=== PATIENT | female | born 1960 | race Caucasian/White ===

== ENCOUNTER 2018-04-24 14:24 | Outpatient (REF) | payer MEDICAID, SELFPAY ==
[2018-04-24 20:46] LABS: ALT 27 U/L (12-78); AST 16 U/L (15-37); Albumin 3.8 g/dL (3.4-5.0); Alkaline Phosphatase 73 U/L (46-116); Anion Gap 10.2 mmol/L (3-11); BUN 25 mg/dL (7-18); Bilirubin, Total 0.3 mg/dL (0.2-1.0); C-Reactive Protein 0.17 mg/dL (0.0-0.3); CO2 25.8 mmol/L (21.0-32.0); CREATININE 0.87 mg/dL (0.55-1.02); Chloride 104 mmol/L (98-107); Glucose 98 mg/dL (70-100); Potassium 4.1 mmol/L (3.5-5.1); Sodium 140 mmol/L (136-145); TSH 2.03 uIU/mL (0.358-3.74)
[2018-04-24 20:50] LABS: Absolute Basophil Count 0.03 k/cumm (0.0-0.2); Absolute Eosinophil Count 0.16 k/cumm (0.0-0.7); Absolute Lymphocyte Count 1.36 k/cumm (1.2-3.4); Absolute Monocyte Count 0.39 k/cumm (0.11-0.7); Basophils % 0.6; Eosinophils % 3.2; HCT 38.5 % (36.0-46.0); HGB 12.5 g/dL (12.0-15.5); Mean Corp. HGB Concentration 32.5 g/dL (32.0-36.0); Mean Corpuscular Hemoglobin 31.3 pg (27.0-33.0); Mean Corpuscular Volume 96.3 fL (80-95); Mean Platelet Volume 9.8 fL (8.0-11.0); Monocytes % 7.7; Neutrophils % 61.5; Platelet Count 306 x1000/uL (130-400); RBC Distribution Width 13.3 % (11.7-14.6); White Blood Cell Count 5.04 k/cumm (4.4-10.8)
[2018-04-24 22:15] LABS: ESR 10 MM/HR (0-30)
[2018-04-25 13:35] LABS: Calcium 8.9 mg/dL (8.5-10.1)
== END 2018-04-24 14:44 ==
LOC: NCHCN 14:24
PROVIDERS: PCP Nurse Practitioner Family; Visit Provider Nurse Practitioner Family
DX: R19.7 Diarrhea, unspecified (principal)
CPT/HCPCS: 80053; 85652; 84443; 85025; 86140

== ENCOUNTER 2020-01-06 11:04 | Outpatient (REF) | payer MEDICAID, SELFPAY ==
--- NOTE | 2020-01-06 10:25 | PAPFT_PTH ---
PATIENT: Mishel Mitchell LOC: [facility] U#:[id number] AGE/SX: 59/F ROOM: RE01/06/[address]: Teri Wyman : 1960 BED: DIS: 01/06/2020 SPEC #: [id number] RECD: 01/07/20 12:46 STATUS: RANDALL REQ #: [id number] DELIA: 01/06/20 10:[address]: Teri Wyman DEPT: [facility] Cyt[facility] RECD BY: Katia Squires ENTERED: 01/07/20 12:46 SP TYPE: PAPFT OTHR DR: Milagros Melendez Tissues: 1 - CX/ENDOCX FOR PAP SMEARS Procedures: PAP THIN PREP/[facility] Screening HPV DNA PROBE Comments: [id number]
== END 2020-01-06 11:24 ==
LOC: NCHCN 11:04
PROVIDERS: PCP Nurse Practitioner Family; Visit Provider Nurse Practitioner Community Health
DX: Z12.4 Encounter for screening for malignant neoplasm of cervix (principal)
CPT/HCPCS: 88142; 87624

== ENCOUNTER 2021-03-17 11:09 | Outpatient (REF) | payer MEDICAID, SELFPAY ==
[2021-03-17 15:50] LABS: ALT 31 U/L (14-59); AST 12 U/L (15-37); Albumin 3.5 g/dL (3.4-5.0); Alkaline Phosphatase 92 U/L (46-116); Anion Gap 8.7 mmol/L (3-11); BUN 19 mg/dL (7-18); Bilirubin, Total 0.3 mg/dL (0.2-1.0); CO2 28.3 mmol/L (21.0-32.0); CREATININE 0.8 mg/dL (0.55-1.02); Calcium 8.7 mg/dL (8.5-10.1); Calculated LDL 116 mg/dL (<100); Chloride 104 mmol/L (98-107); Cholesterol 210 mg/dL (<200); Glucose 78 mg/dL (74-106); HDL Cholesterol 65 mg/dL (40-60); Potassium 4.4 mmol/L (3.5-5.1); Sodium 141 mmol/L (136-145); Total Protein 6.8 g/dL (6.4-8.2); Triglyceride 146 mg/dL (<150)
[2021-03-17 16:46] LABS: Vitamin B12 > 2000 pg/mL (193-986)
== END 2021-03-17 11:10 | disposition home or self-care (01) ==
LOC: NCHCN 11:09
PROVIDERS: PCP Nurse Practitioner Family; Referring Provider Nurse Practitioner Family; Visit Provider Nurse Practitioner Family
DX: E53.8 Deficiency of other specified B group vitamins (principal); I10 Essential (primary) hypertension; Z13.220 Encounter for screening for lipoid disorders
CPT/HCPCS: 80053; 80061; 82607

== ENCOUNTER 2022-03-10 10:54 | Outpatient (CLI) | payer MEDICAID, SELFPAY ==
--- NOTE | 2022-03-10 10:00 | DI.RAD_ITS ---
Exam(s) XR KNEE LT 3V AP,LAT,KATY EXAM: XR KNEE LT 3V AP,LAT,KATY CLINICAL HISTORY: pain in knee. TECHNIQUE: 2D digital imaging was performed. COMPARISON: CR LEFT KNEE 3 VIEW COMPLETE from 12/25/2008 MR MRI L LOWER JOINT WO CONT from 01/22/2009 FINDINGS: 3 views No evidence of fracture nor joint effusion. However, there is advanced narrowing of the lateral comp artment noted. Also marginal osteophytes on both sides inner and outer aspects of the lateral femora l condyle as well as on the outer aspect of the lateral tibial plateau. Lesser degenerative changes are noted in the medial compartment. Moderate degenerative changes in the patellofemoral compartment . IMPRESSION: As above. Significant progression of degenerative disease when compared to the prior images of 2008. DATA REPOSITORY: RADIATION DOSE DELIVERED:
== END 2022-03-10 10:55 | disposition home or self-care (01) ==
LOC: DIORS 10:54
PROVIDERS: PCP Nurse Practitioner Family; Referring Provider Nurse Practitioner Family; Visit Provider Physician Assistant Surgical
DX: M25.562 Pain in left knee (principal); M17.12 Unilateral primary osteoarthritis, left knee
CPT/HCPCS: 73562

== ENCOUNTER 2022-09-08 03:31 | Outpatient (CLI) | payer MEDICAID, SELFPAY ==
[2022-09-08 13:44] LABS: HCT 41.6 % (36.0-46.0); HGB 13.6 g/dL (11.2-15.7); MCH 31.6 pg (27.0-33.0); MCHC 32.7 % (32.0-36.0); MCV 97 fL (80-95); MPV 8.7 fL (8.0-11.0); Platelet Count 371 10^3/uL (130-400); RDW 12.8 % (11.7-14.6); RDW-SD 45.3 fL; WBC 5.68 10^3/uL (4.4-10.8)
[2022-09-08 14:04] LABS: Anion Gap 9.2 mmol/L (3-11); BUN 19 mg/dL (7-18); CO2 27.8 mmol/L (21.0-32.0); CREATININE 0.9 mg/dL (0.55-1.02); Chloride 104 mmol/L (98-107); Estimated GFR 72.73 (mL/min/1.73m2); Glucose 107 mg/dL (74-106); Sodium 141 mmol/L (136-145)
== END 2022-09-08 03:32 | disposition home or self-care (01) ==
LOC: LBO 03:31
PROVIDERS: PCP Nurse Practitioner Family; Visit Provider Student in an Organized Health Care Education/Training Program
DX: M25.562 Pain in left knee (principal); M17.12 Unilateral primary osteoarthritis, left knee; Z01.818 Encounter for other preprocedural examination; Z01.812 Encounter for preprocedural laboratory examination
CPT/HCPCS: 36415; 80048; 85027

== ENCOUNTER 2022-09-08 13:18 | Outpatient (CLI) | payer MEDICAID, SELFPAY ==
--- NOTE | 2022-09-08 13:00 | DI.RAD_ITS ---
Exam(s) XR KNEE LT 1V XR STANDING ALIGNMENT EXAM: XR STANDING ALIGNMENT and XR knee LT 1 V CLINICAL HISTORY: L TKA planning. TECHNIQUE: 2D digital imaging was performed. Five images were obtained. COMPARISON: CR XR KNEE LT 3V AP,LAT,KATY from 03/10/2022 CR XR KNEE LT 1V from 09/08/2022 FINDINGS: BONES: There are degenerative changes of the hips bilaterally. There are old traumatic changes of th e left femur. The right knee is unremarkable. In the left knee there are marked degenerative change s with joint space narrowing and periarticular spurring. The findings are most marked in the lateral femoral tibial and patellofemoral joints. There is a moderate joint effusion. There is joint space narrowing in the left ankle. The right ankle is unremarkable.There is no significant leg length dis crepancy. SOFT TISSUE: Normal. IMPRESSION: Marked osteoarthritis of the left knee. DATA REPOSITORY: RADIATION DOSE DELIVERED:
== END 2022-09-08 13:19 | disposition home or self-care (01) ==
LOC: DIORS 13:19
PROVIDERS: PCP Nurse Practitioner Family; Referring Provider Nurse Practitioner Family; Visit Provider Physician Assistant
DX: M17.12 Unilateral primary osteoarthritis, left knee (principal); M25.562 Pain in left knee; M25.462 Effusion, left knee; M16.0 Bilateral primary osteoarthritis of hip
CPT/HCPCS: 73560; 77073

== ENCOUNTER 2022-09-13 06:01 | Day surgery (SDC) | payer MEDICAID, SELFPAY ==
[2022-09-13] VITALS (16 sets, daily range): BP systolic 75–131; BP diastolic 45–84; PULSE 68–95; RESP 14–21; TEMP 35.9–36.6; O2SAT 93–99; BMI 25.2
--- NOTE | 2022-09-13 06:14 | ANES.PREOP_ITS ---
General Info Date of Service Date Performed: 09/13/22 Height: 5 ft 4.5 in Weight: 67.585 kg Body Mass Index (BMI): 25.2 Surgical Procedure: Operation Date: 09/13/22 07:40 Proposed Procedure Side Surgeon p Knee Total Arthroplasty w/OrthAlign, Cementless PS Left Papito Ayoub MD Meds Allergies and Home Medications Allergies Allergy/AdvReac Type Severity Reaction Status Date / Time lisinopril Allergy Unknown Verified 09/13/22 06:16 naproxen [From Naprosyn] Allergy Unknown Verified 09/13/22 06:16 Home Medication Medication Instructions Recorded hydrochlorothiazide 12.5 mg capsule 25 mg PO DAILY 10/01/12 acetaminophen 500 mg tablet 1,000 mg PO BID 01/19/22 (Tylenol Extra Strength) bupropion HCl 150 mg tablet,12 hr 150 mg PO DAILY 01/19/22 sustained-release (Wellbutrin SR) cholecalciferol (vitamin D3) 25 25 mcg PO DAILY 01/19/22 mcg (1,000 unit) tablet fluoxetine 20 mg capsule 20 mg PO DAILY 01/19/22 losartan 100 mg tablet 100 mg PO DAILY 01/19/22 mecobalamin (vitamin B12) 1,000 1,000 mcg sublingual DAILY 01/19/22 mcg disintegrating tablet,sublingual meloxicam 15 mg tablet 15 mg PO DAILY 01/19/22 multivitamin 1 tab PO DAILY 01/19/22 tramadol 50 mg tablet 50 - 100 mg PO QHS PRN pain #20 08/16/22 tabs Current Visit Medications: Current Medications Generic Name Dose Route Start Last Admin Trade Name Jerry PRN Reason Stop Dose Admin Acetaminophen 1,000 mg 09/13/22 06:00 Acetaminophen 500 Mg Tab PO 09/13/22 16:00 PREOP ALICIA Celecoxib 400 mg 09/13/22 06:00 Celecoxib 200 Mg Cap PO 09/13/22 16:00 PREOP ALICIA Gabapentin 300 mg 09/13/22 06:00 Gabapentin 300 Mg Cap PO 09/13/22 16:00 PREOP ALICIA Tranexamic Acid 1,000 mg/ 60 mls @ 360 mls/hr 09/13/22 06:00 Sodium Chloride IVPB 09/13/22 16:00 PREOP ALICIA Ringer's Solution 1,000 mls @ 80 mls/hr 09/13/22 06:00 IV 10/12/22 23:59 INFUSION ALICIA Cefazolin Sodium/Dextrose 2 gm in 50 mls @ 100 mls/hr 09/13/22 06:00 Ancef Duplex IVPB 09/13/22 16:00 PREOP ALICIA IV Miscellaneous Supplies 1 each 09/13/22 06:00 Iv Access IV 10/12/22 23:59 DIRECTED ALICIA Sodium Chloride 0 ml 09/13/22 06:00 Normal Saline Flush 10 Ml Syr IV 10/12/22 23:59 PRN PRN Sodium Chloride 0 ml 09/13/22 06:00 Normal Saline 10 Ml Vial IJ 10/12/22 23:59 DIRECTED PRN Sterile Water 0 ml 09/13/22 06:00 Water,Injection,Sterile 10 Ml Vial IJ 10/12/22 23:59 DIRECTED PRN PFSH Active Problems Active Problems: Problem Status Onset Code Osteoarthritis of left knee M17.12 Medical History Medical History (Updated 09/13/22 @ 06:22 by Yumi Cohen) History of depression HTN (hypertension) Hx of acute arthritis Surgical History Surgical History H/O arthroscopy of left knee x2 History of appendectomy History of x2 History of open reduction and internal fixation (ORIF) procedure L femur History of tonsillectomy and adenoidectomy Hx of colonoscopy Tobacco Smoking/Tobacco Use Status: Never Alcohol Alcohol Intake: current Alcohol intake frequency: 0-2 drinks per day Substance Use Substance use: Occasionally Substance use type: marijuana Vital Signs and Lab Results Vital Signs Most Recent Vital Signs in EMR: Temp Pulse Resp BP Pulse Ox 36.3 C L 75 16 131/82 99 09/13/22 06:27 09/13/22 06:27 09/13/22 06:27 09/13/22 06:27 09/13/22 06:27 Lab Results Blood Type / Crossmatch: No Data to Display Complete Blood Count: White Blood Count 5.68 10^3/uL (4.4-10.8) 09/08/22 13:33 Red Blood Count 4.30 10^6/uL (3.93-5.22) 09/08/22 13:33 Hemoglobin 13.6 g/dL (11.2-15.7) 09/08/22 13:33 Hematocrit 41.6 % (36.0-46.0) 09/08/22 13:33 Platelet Count 371 10^3/uL (130-400) 09/08/22 13:33 Complete Metabolic Panel: Sodium 141 mmol/L (136-145) 09/08/22 13:33 Potassium 4.0 mmol/L (3.5-5.1) 09/08/22 13:33 Chloride 104 mmol/L (98-107) 09/08/22 13:33 Carbon Dioxide 27.8 mmol/L (21.0-32.0) 09/08/22 13:33 BUN 19 mg/dL (7-18) H 09/08/22 13:33 Creatinine 0.9 mg/dL (0.55-1.02) 09/08/22 13:33 Est GFR (CKD-EPI 2020) 72.73 (mL/min/1.73m2) 09/08/22 13:33 Calcium 8.0 mg/dL (8.5-10.1) L 09/08/22 13:33 Glucose 107 mg/dL (74-106) H 09/08/22 13:33 Liver Function Panel: No Data to Display Coagulation Panel: No Data to Display Cardiac Panel: 2 No Data to Display Arterial Blood Gas: No Data to Display Venous Blood Gas: No Data to Display Pancreas Panel: No Data to Display Thyroid Panel: No Data to Display Infectious Disease: No Data to Display Blood Cultures: No Data to Display Toxicology Panel: No Data to Display Anesthesia Assessment and Plan Anesthesia History Personal History: No History of Anesthesia Complications Family History: No Family History of Anesthesia Complications Exercise Tolerance Exercise Tolerance: Metabolic Equivalents>4 Cardiac & Pulmonary Exam Cardiac Exam: Normal S1/S2 Heart Sounds Pulmonary Exam: Clear Bilateral Breath Sounds Implantable Cardiac Device Does patient have a Pacemaker or an ICD?: No Airway Exam Known Difficult Airway: No Mallampati Class: 2 Mouth Opening: Normal (> 3cm) Thyromental Distance: Greater than 3 cm Neck Range of Motion: Full ROM Neck Circumference: Normal Teeth Condition: Normal Dentition ASA Classification ASA Score: ASA 2 Emergency Case?: No NPO Status NPO Status: NPO Clears >2 hours, Solids >8 hours Anesthesia Plan Resuscitation Status: Full Code Anesthesia Technique: Spinal Anesthesia Airway Planned: Natural Airway Pain Management: Surgeon and patient request nerve block Monitors Used: Standard Monitors Preoperative Comments:: 62 yo female for TKA. Sig PMHx: HTN (HCTZ, losartan), never smoker, depression (fluoxetine, bupropion) occ EtOH/cannabis,
[2022-09-13] MEDS: Celecoxib 200 MG CAP 400 MG PO (06:36)
[2022-09-13] MEDS: Gabapentin 300 MG CAP PO (06:36)
[2022-09-13] MEDS: Acetaminophen 500 MG TAB 1000 MG PO (06:36)
[2022-09-13] MEDS: Lactated Ringers 1,000 ML 80 ML IV ×2 (06:45→10:14)
--- NOTE | 2022-09-13 07:14 | DSE_ITS ---
Date of service: 09/13/22 Time of Service: 12:39 DS: Diagnosis Discharge Diagnosis (1) Osteoarthritis of left knee: Status: Acute Discharge Plan Disposition Patient Disposition: Home Condition: Good Discharge Details Reason For Visit: Left knee DJD Attending Provider: Papito Ayoub Primary Care Provider: Milagros Mcdonald Home Meds and New Rx's Prescriptions: New acetaminophen 500 mg tablet 1,000 mg PO Q8H PRN Qty: 90 0RF Rx Instructions: Take two tablets up to every 8 hours as needed for pain aspirin 81 mg tablet,delayed release (DR/EC) 81 mg PO BID 30 Days Qty: 60 0RF celecoxib [Celebrex] 200 mg capsule 200 mg PO BID PRNQty: 60 0RF Rx Instructions: Take one tablet twice daily for pain and inflammation docusate sodium [Colace] 100 mg capsule 100 mg PO BID Qty: 30 0RF dexamethasone 4 mg tablet 4 mg PO DAILY Qty: 2 0RF Rx Instructions: Take one tablet once daily for two days gabapentin 300 mg capsule 300 mg PO QHS Qty: 14 0RF Rx Instructions: Take one tablet at bedtime oxycodone 5 mg tablet 5 mg PO Q4H PRN (Reason: severe post-operative pain) Qty: 18 0RF Rx Instructions: Take one tablet up to every 4 hours as needed for severe pain pantoprazole 40 mg tablet,delayed release (DR/EC) 40 mg PO DAILY Qty: 30 0RF Continued hydrochlorothiazide 12.5 MG capsule 25 mg PO DAILY fluoxetine 20 mg capsule 20 mg PO DAILY bupropion HCl [Wellbutrin SR] 150 mg tablet sustained-release 12 hr 150 mg PO DAILY losartan 100 mg tablet 100 mg PO DAILY cholecalciferol (vitamin D3) 25 mcg (1,000 unit) tablet 25 mcg PO DAILY mecobalamin (vitamin B12) 1,000 mcg tablet,disintegrating 1,000 mcg sublingual DAILY Rx Instructions: place tablet under tongue and allow to dissolve for at least30 secs before swallowing multivitamin Tablet 1 tab PO DAILY Discontinued meloxicam 15 mg tablet 15 mg PO DAILY acetaminophen [Tylenol Extra Strength] 500 mg tablet 1,000 mg PO BID tramadol 50 mg tablet 50 - 100 mg PO QHS MDD 2 tabs PRN (Reason: pain) Qty: 20 0RF Discharge Instructions Additional Instructions: Total Knee Discharge Instructions Activity: The most important activity is to walk and to work on gentle motion (both flexion and extension). You should try to take short walks a few times a day. It is important that when resting you work on keeping the knee straight. Avoid putting a pillow behind the knee as this will encourage flexion. Work on range of motion exercises as provided by Physical Therapy. - Start outpatient physical therapy within 2 weeks. - You should wear the MILLI hose on both legs for 2 weeks. You may remove these at night. You may also use any compression sock in place of the MILLI hose. - Utilize [employer] to review exercises, see videos on exercises and obtain basic information pertaining to your surgery and your recovery. Dressing: Remove the Tello wrap by 2 days after your surgery and put on the MILLI stocking given to you from the hospital. Keep the surgical dressing (underneath the TELLO wrap) in place for at least one week. After the first week it may be removed and replaced with light gauze and tape or nothing. The wound and dressing may get wet after 3 days but avoid soaking the dressing or otherwise it will need to be changed. Many people prefer covering the dressing with cling wrap (saran wrap) to minimize it from getting soaked. If it gets wet, just pat dry. If it starts to peel off then it will need to be changed. Medications: - You should take Tylenol and anti-inflammatory Celebrex as your primary pain control medications. If the Celebrex is too expensive or not covered, please call the office for another alternative (Advil/Ibuprofen or Naproxen/Aleve) - You have been prescribed a stronger pain medication Oxycodone for breakthrough pain, take as needed as prescribed. - You have also been prescribed a stomach acid reduction agent Pantoprozole to help reduce stomach acid and reflux. - You have been prescribed Gabapentin to take at night for restlessness and nerve pain. - You will be taking Aspirin 81mg twice a day for DVT prevention unless instruct ed otherwise. - You have also been prescribed Decadron to take to control post-operative nausea and pain. You will start this tomorrow. - If you have constipation you should take Colace (which has been prescribed) or Miralax (which is available [id number]). It takes most people 3-4 days to have a bowel movement. Follow-up: 2 weeks If you have any acute concerns or questions, please do not hesitate to contact the office at [phone]. You may contact Dr. Ayoub with any questions after hours through the hospital at [phone] or on his cell phone at [phone]. Stand Alone Forms: Anesthesia Discharge InstAnes. DelioNerve Block Instructions, Sandra Blanco (DSU) Referrals: Papito Ayoub MD [ [facility] STAFF PHYSICIAN] - Equipment/Supplies: Walker Activity:: Activity as Tolerated Remove Dressings/Wound Care:: Do Not Remove Shower/Bathe:: Cover Diet:: As Tolerated Discharge Orders Discharge Orders: Discharge Order (Routine); Ordered 09/13/22 Ordered By: Papito Ayoub DS: Summary Time Spent with Patient providing and/or coordinating discharge services: Less than 30 minutes Status at Discharge Functional status at discharge: uses cane/walker Overall status at discharge: patient is progressing back to baseline Mental Status: mental status grossly normal Speech and Movement: speech and movement normal Mood: congruent mood Affect: normal affect Exam Psych Mental Status: mental status grossly normal Speech and Movement: speech and movement normal Mood: congruent mood Affect: normal affect DS: Data Vitals/I&O Vitals and I&O: Vital Signs Temperature 97.3 F L 09/13/22 06:27 Pulse 75 09/13/22 06:27 Pulse Rhythm Regular 09/13/22 06:27 Respiratory Rate 16 09/13/22 06:27 Blood Pressure 131/82 09/13/22 06:27 Pulse Oximetry 99 09/13/22 06:27 Oxygen Delivery Method Room Air 09/13/22 06:27 Oxygen Flow Rate 0 09/13/22 06:27 Pain Level 8 09/13/22 06:27 Intake & Output 09/12/22 09/12/22 09/13/22 11:59 23:59 11:59 Weight 148 lb 15.991 oz 144 lb 2.917 oz PFSH All Active Problems (Updated 09/13/22 @ 06:22 by Yumi Cohen) Osteoarthritis of left knee (Acute) DEPO MEDROL 03/10/22 Medical History (Updated 09/13/22 @ 06:22 by Yumi Cohen) History of depression HTN (hypertension) Hx of acute arthritis Surgical History H/O arthroscopy of left knee x2 History of appendectomy History of x2 History of open reduction and internal fixation (ORIF) procedure L femur History of tonsillectomy and adenoidectomy Hx of colonoscopy Social History (Updated 09/08/22 @ 14:37 by BRENDAN Kumar) Smoking/Tobacco Use Status: Never Smoking risk assessment performed?: Yes Alcohol Intake: current Alcohol Intake frequency: 0-2 drinks per day Alcohol type: wine Drug use: Occasionally Substance use type: marijuana Details: alcohol: t-2, two beers. Marijuana: t-14,joint Do you feel safe at home: Yes Do you feel safe in your relationship?: Yes Time Spent with Patient Time Spent with Patient: <45 minutes Time was spent: preparing to see the patient(eg.review tests), ordering medications,tests, procedures and counseling the patient
--- NOTE | 2022-09-13 07:19 | W.ANESNERVE ---
Nerve Block Single Injection Procedure Date and Time Date Performed: 09/13/22 Procedure Start: 07:10 Location Where Procedure Performed Procedure Location: Day Surgery Unit Reason Performed: Postoperative Analgesia Requesting Provider: Papito Ayoub Timeout Performed Timeout Performed: No Monitoring Used ECG, Blood Pressure and SpO2 Sterility Sterility: Hand Hygiene, Surgical Cap, Surgical Mask, Sterile Gloves and Chlorhexidine Sedation Given During Procedure Sedation Given (Indicate Dose Given): Versed IV Dose:: 2 mg Patient Mental Status Patient Mental Status: Sedate with meaningful communication Nerve Block 1st Nerve Block: Laterality: Left Block Type: Adductor Canal Ultrasound Image Saved?: Yes Needle / Catheter Used: 100mm SonoPlex II Local Anesthetic Bolus (Indicate Dose Given): Lidocaine used for local infiltration of skin and Bupivacaine 0.375% Dose:: 10 mL Additives (Indicate Dose Given): None Ultrasound: Sterile probe cover and gel used Nerve Stimulator: Supplement to Ultrasound use and No twitch or parasthesia noted < 0.5 mA Paresthesia: None Procedure Tolerated: No Complications Procedure Outcome: Successful Performed By: Leeroy Benitez
[2022-09-13] MEDS: ceFAZolin 2 GM/50 ML BAG IVPB (07:36)
--- NOTE | 2022-09-13 09:29 | ROE_ITS ---
Date of service: 09/13/22 Time of Service: 09:30 Operative Note Operative Note DATE OF PROCEDURE: 09/13/22 PRE-OP DIAGNOSIS: Left Knee Osteoarthritis with Valgus Deformity POST-OP DIAGNOSIS: same PROCEDURE: Left Total Knee Replacement with Intraoperative Navigation SURGEON: Papito Ayoub TELEPHONE EXCHANGE OPERATOR: Saritha Couch ANESTHESIA TYPE: General LMA/ETT Refer to Anesthesia Record ESTIMATED BLOOD LOSS: 50 PATHOLOGY: none sent TOURNIQUET TIME: 0 COMPLICATIONS: None Patient was transported to: PACU Patient's condition: stable Implants: 1. Depuy Attune Cementless Posterior Stabilized Femoral Component, Size 5 2. Depuy Attune Cementless Fixed Bearing Tibial Component, Size 4 3. Depuy Attune 5x6mm PS/FB Poly 4. Depuy Attune Patellar Component, Size 35 Indications: I have seen Lynn in clinic for symptoms of LEFT knee arthritis, confirmed with radiographic findings. She has exhausted nonoperative methods and was having significant limitations in daily function and desired better function and less pain. I discussed the technical details of a knee replacement. I explained the risks of the procedure to include, but not limited to, bleeding, infection, pain, stiffness, fracture, damage to nerves and vessels, damage to muscles and tendons, loosening, need for repeat procedure, blood clot and cardiopulmonary demise. Despite these risks, Lynn elected to proceed. Findings: There was significant signs of arthritis throughout the knee, focused mostly over the posterior lateral tibia and femur. Procedure Description: Lynn was greeted in the preoperative holding area where the correct side was identified and marked. The consent was reviewed with the patient and signed. The history and physical was updated. All questions were answered. Pr eoperative mediacations were administered: Acetaminophen 1000mg, Celebrex 400mg, and Gabapentin 300mg. An adductor canal block was then administered by the anesthesia team in the PACU. She was taken back to the operating room. A spinal anesthestic was then attempted, but unsuccessful. This was tried in the lateral decubitus position as well but unable to be obtained. Thus, a general anesthetic was administered. The patient was placed into the supine position on the operating room table. A nonsterile tourniquet was placed high onto the leg. Posts were placed for positioning during the procedure. All bony prominences were well padded. Prophylactic antibiotics in the form of Cefazolin were administered. 1g of Tranxemic Acid was given intravenously within 30 minutes of incision. The left leg was then prepped with Chloraprep and draped in a standard fashion with impervious stockinette. A second prep with Chloraprep was performed prior to application of Iodine impregnated skin protection. A timeout to confirm correct identity, side and site, procedure, allergies, anesthesia, and medical concerns was performed. With the knee in some flexion, a midline incision was made overlying the knee. Full thickness skin flaps were raised once the extensor mechanism was encountered. These were raised medially and laterally. Any bleeding was controlled with electrocautery. Once the extensor mechanism was fully exposed, a medial parapatellar arthrotomy was performed in a flexed position. All bleeding from the arthrotomy and the geniculate arteries was coagulated. A medial subperiosteal peel was performed with electrocautery to the midcoronal plane. The fat pad was removed while keeping the patellar tendon protected. The anterior distal femur synovium was removed for later visualization. The ACL and PCL were resected and the anterior horn of the lateral meniscus was transected. The knee was then flexed with the patella everted. Large osteophytes from the tibia were removed. Large osteophytes from the femur were removed. A single starting pin was then placed 1cm anterior to the PCL insertion and the notch in the direction of the femoral head. The OrthoAlign device was applied over the pin. It was oriented to be in line with the epicondylar axis and the trochlear groove. It was then pinned into place. The navigation computer was then turned on and calibrated. The distal femur cut was set at 0 degrees varus/valgus and 3 degrees flexion. The distal femur cutting guide then was positioned for a 9mm cut. The distal femur was cut with an oscillating saw while protecting the soft tissues. The tibia was then addressed. The OrthoAlign device was placed over the tibial tubercle and medial tibia and secured into position. Once again, OrthoAlign was calibrated and then set for a 2 degree varus cut and 4 degrees of posterior slope. With this locked into position, the cut thickness stylus was used to assess cut thickness. The lateral side, most involved side, was set for a 6mm cut. This was then held in position and pinned into place with 2 additional pins and a cross pin for stability. The medial and lateral collateral ligaments were protected and the cut was performed. With this completed, it was assessed and noted to be of appropriate dimensions. The guide and OrthoAlign was removed. A spacer block was inserted and the knee was brought into extension to ensure enough space was present. The femur was then sized as a size 5. The Orthoalign gap balancing device was then placed in extension. This was used to ensure that the ligaments were properly balanced with up to 2mm laxity laterally compared medially. The extension gap was measured as 18mm. The knee was then brought into 90 degrees of flexion and the ligament kitchen hand was once again placed. Under the same amount of force the flexion gap was measured. The attending specific jig was placed and the flexion gap was made to match the extension gap. The 4-in-1 cutting guide was the placed. An shirley wing was used to confirm appropriate position of the anterior cut to avoid notching. This cutting guide was ensured to be flush on the cut surface and then pinned into place with headed pins. While protecting the soft tissues, quad tendon, and collateral ligaments, the anterior and posterior cuts were performed with a saw. The central two pins were removed and the posterior and anterior chamfers were cut next. The notch-cutting guide was placed. This was pinned to lateralize the femoral component as much as possible while keeping it flush on the cut surface. This was then pinned into position. A saw was used to make the notch cut. A rasp smoothed the cut surfaces. The medial and lateral menisci were removed. A trial femoral component was then inserted, impacted down to the cut surfaces, and the lug holes were drilled. A provisional trial tibial component was placed and the knee was brought through range of motion. There was noted to be excellent extension and flexion. There was no significant instability. The patella was tracking without thumbs. A size 6mm polyethylene component provided the best range of motion and stability with less than 2mm gapping with medial and lateral stress and full extension without significant hyperextension. The tibial cut surface was fully exposed. The tibia was then sized as a 4. The tibia had been previously marked during trialing to correspond to the center of the tibial component to help with rotation. The trial was aligned to this fredy, approximately rotated to the medial 1/3rd of the tibial tubercle. The trial was pinned into place. The tibia was prepared with a reamer and a keel punch and lug holes. The knee was then brought into extension and the patella was measured as 22mm. Using the patellar clamp and cut guide, this was resected to a flat surface with at least 13mm of thickness remaining. The size 35 patella fit the best. This was oriented and then clamped into position. The lugs were drilled. The trial components were removed. The final components were opened on the back table. The periosteal and capsular tissues, especially posteriorly, around the knee were then systematically injected with a periarticular cocktail consisting of 246mg of Ropivacaine, 0.5mg of Epinephrine, 0.08mg of Clonidine, and 30mg of Ketorolac, diluted to 100cc. On the back table, with the implants opened, the cement was mixed. One batch of high viscosity cement was prepared with vacuum assistance. After the cement was ready a small amount was placed on the cut surface of the patella and the patellar button was clamped into position and held. While the cement was hardening, the cementless knee components were placed. Starting with the tibial component, the tibia was subluxed anteriorly and the lug holes of the component were lined up. The tibia was then impacted with an impactor and mallet until the tibial component was in contact with the tibia. Then, the femoral component was inserted. The lug holes were aligned and the component was impacted into position. The final polyethylene was then inserted. The knee was irrigated with Surgiphor Betadine solution. This was allowed to sit in the knee for 3 minutes and then it was thoroughly irrigated out with saline. After the cement had finally cured, approximately 15min, the clamp was removed from the patella and the knee was taken through range of motion. The patella was tracking with a no-thumbs technique. The capsule was then reapproximated with a No. 1 Vicryl at multiple locations. The capsule was finally closed with a No. 2 Stratafix, barbed suture. Deep tissues were then reapproximated with 0 Vicryl and 2-0 Monocryl. The skin was closed with a running 3-0 Monocryl in a subcuticular fashion. This was reinforced with skin glue. A Mepilex silver dressing was applied along with a [id number] KELLY wrap. A CryoCuff was applied. Lynn was transferred to the hospital bed without difficulty an suffering no apparent complication. Lynn has a good prognosis. Physical therapy will start today and without restrictions, weight-bearing as tolerated. Aspirin 81mg BID will be used for DVT prophylaxis.
[2022-09-13] MEDS: ePHEDrine 25 MG/5 ML Syringe IVP ×2 (10:00→10:09)
--- NOTE | 2022-09-13 13:31 | W.ANESPOSTOP ---
Postoperative Evaluation Date, Time and Location Date Performed: 09/13/22 Time Performed: 13:32 Patient Location: Day Surgery Unit Vital Signs Most Recent Imported Vital Signs: Most Recent Vital Signs Temp Pulse Resp BP Pulse Ox 36.3 C L 95 H 18 110/81 98 09/13/22 12:35 09/13/22 12:35 09/13/22 12:35 09/13/22 12:35 09/13/22 12:35 Pain Score Most Recent Pain Score: Most Recent Pain Score Pain Level 0 09/13/22 12:35 Assessment Mental Status: Awake (Alert & Oriented to Patient Baseline) Airway and Respiratory Function: Patent airway with normal (patient baseline) respiratory exam Cardiovascular Function: Hemodynamically Stable Hydration Status: Adequately Hydrated Nausea & Vomiting: No Nausea or Vomiting Pain: Pt. Denies Any Pain Peripheral Nerve Block: Regional nerve block not resolved at time of post operative discharge Postoperative Comments:: up ambulating to BR BP lower than baseline but not dizzy. pt will hold her meds tonight and check her own BP. DOING WELL
--- NOTE | 2022-09-13 17:02 | PT.INIE ---
Date of service: 09/13/22 Time of Service: 12:19 PT Notes Visit Reasons: Left knee DJD Physical Therapy Day Surgery Initial Evaluation Date: 09/13/2022 Referring Doctor: BRENDAN Doherty PT Orders: PT CONSULT: S/P Ortho surgery Precautions: WBAT on the left LE with AD. Patient Profile/Admitting Diagnosis: Lynn is a 62-year-old female with degenerative joint disease of the left knee and status post left total knee arthroplasty on postoperative day 0. PMHX: Medical History?(Updated 09/08/22 @ 14:06 by BRENDAN Kumar) HTN (hypertension) Surgical History?(Updated 09/08/22 @ 14:06 by BRENDAN Kumar) H/O arthroscopy of left knee x2 History of appendectomy History of x2 History of tonsillectomy and adenoidectomy Social History/Home Situation: Patient will have the support of her daughter as she recovers postsurgery. She has 4 steps to enter her home with rails on both sides. Equipment Owned/DME: None Subjective: Denies pain, headache, and lightheadedness throughout session. Reported some tingling sensation on the left foot initially during ambulation activity. Objective: General Observation: Supine in bed. Tello wraps to left LE. Cryo/Cuff to left knee. Mental Status: Alert and oriented x 4 Pain: 0/10 in the left knee ROM: Right Lower Extremity: Hip flexion WFL. Hip abduction WFL. Knee flexion 10 degrees to 110 degrees. Knee extension -10 degrees.. Ankle dorsiflexion WFL. Ankle plantarflexion WFL. Left Lower Extremity: Hip flexion WFL. Hip abduction WFL. Knee flexion WFL. Ankle dorsiflexion WFL. Ankle plantarflexion WFL. Strength: Right Lower Extremity: Hip flexors 5/5. Hip abductors 5/5. Knee flexors 3-/5. Knee extensors 3-/5. Ankle dorsiflexors 5/5. Ankle plantarflexors 5/5. Left Lower Extremity:Hip flexors 5/5. Hip abductors 5/5. Knee flexors 5/5. Knee extensors 5/5. Ankle dorsiflexors 5/5. Ankle plantarflexors 5/5. Sensation: Intact as to pain and light touch in bilateral lower extremity, reports some tingling sensation on the left foot that resolved with ambulation activity Bed Mobility/Transfers: Supine to sit standby assist Sit to stand contact-guard assist Stand to sit standby assist Bed to chair standby assist Gait: 150 feet on level surface ambulation using front wheeled walker with step through gait pattern requiring only standby assist with minimal verbal cueing for correct technique initially. Denies worsening of lightheadedness, headache, and chest pain throughout session. No increased or no report of pain in the left knee activity. Stairs: Down 6 x 4 inch steps and 4 x 6 inch steps while holding onto bilateral rails with step to gait pattern requiring only standby assist, minimal verbal cueing provided initially for correct technique. Balance: Static Sitting: Normal Dynamic Sitting: Normal Static Standing: Fair Dynamic Standing: Fair Special Tests: Mobility Limitations Standardized Measure [facility] AM-PAC 6 clicks Basic Mobility Inpatient Short Form: Raw Score: 23 CMS Score: 11% deficit Informed Consent/Education: Patient instructed in purpose of PT consult. Packet containing TKA exercise protocol has been given to patient. Education and training on initial set of exercises that can be done at home have been completed with patient. THERA EX: Supine quad sets x5 Supine heel slides x5 Supine ankle DF/PF x10 Supine small range right SLR x5 Seated marches x10 Assessment: Lynn requires the use of a front wheeled walker for all mobility ADL performance in order to maximize independence and reduce fall risk. Patient presents with clinical signs and symptoms consistent with current/admitting diagnoses that have resulted to mobility limitations, gait instability, generalized weakness, and impairment of motor control as demonstrated by the following impairment level findings: 1. Decreased strength to left knee major muscle groups 2. Impaired standing balance 3. Limitation of joint range of motion in left knee Impairments are contributing to the following functional limitations: 1. Inability to safely ambulate without assistive device 2. Increase completion time for mobility ADL performance 3. Increased fall risk Patient is assessed as a 85150 moderate complexity based on the following: History: 62-year-old female with impairment level findings, functional limitations, and past medical history as indicated above Examination: Demonstrable impairment in strength, balance, and mobility level with underlying impairments and functional limitations as documented above Presentation: Evolving Decision Makin moderate complexity Goals: N/A. PT evaluation and 1-2 treatment sessions only for functional mobility training using recommended AD and for HEP instruction. Plan of Care/Treatment Plan: N/A. PT evaluation and 1-2 treatment session only for functional mobility training using recommended AD and for HEP instruction. DISCHARGE RECOMMENDATIONS: Home when medically cleared by orthopedic surgeon. Recommend outpatient PT services in order to optimize functional mobility outcomes and facilitate return to independent community ambulation without an assistive device. TREATMENT CODE/TIME: 63527 x 15 minutes, 27116 x 13 minutes beginning at 12:19 PM. Thank you for the opportunity to participate in the care of this patient. Claudette Huitron PT, DPT, CLT [facility] [place], [place]
== END 2022-09-13 13:43 | disposition home or self-care (01) ==
PROVIDERS: PCP Nurse Practitioner Family; Visit Provider Student in an Organized Health Care Education/Training Program
PROC: (CPT 27447; principal; 2022-09-13 07:30)
DX: M17.12 Unilateral primary osteoarthritis, left knee (principal); M21.062 Valgus deformity, not elsewhere classified, left knee
CPT/HCPCS: 27447; 20985; 76942; 97162; 97530; J0690; J1100; J2250; J2405; J2704

== ENCOUNTER 2022-10-03 08:22 | Outpatient (CLI) | payer MEDICAID, SELFPAY ==
--- NOTE | 2022-10-03 07:45 | DI.RAD_ITS ---
Exam(s) XR KNEE LT 1V XR STANDING ALIGNMENT EXAM: XR STANDING ALIGNMENT CLINICAL HISTORY: 1ST POST OP L TKA. TECHNIQUE: 2D digital imaging was performed. Standing AP views were performed from the pelvis throu gh the ankles. Lateral view left knee COMPARISON: CR LEFT KNEE 3 VIEW COMPLETE from 12/25/2008 CR XR STANDING ALIGNMENT from 09/08/2022 CR XR KNEE LT 1V from 09/08/2022 CR XR KNEE LT 1V from 10/03/2022 FINDINGS: BONES: No acute fracture is present. No bony destructive lesion is seen. Chronic appearing deformity of the left greater trochanter. Old fracture mid femur. Leg length discrepancy: No significant overall leg length discrepancy. JOINTS: Knees: Left knee: Left total knee prosthesis. Satisfactory alignment. No abnormal surroundi ng bony lucencies. Right knee: Joint spaces are maintained. The ankle joints show no bilateral narrowing, left greater than right. Degenerative changes also not ed in the lower lumbar spine. Sacralization of the right L5 transverse process. The hip joints are maintained. There is acetabular spurring, greater on the right. SOFT TISSUE: Benign-appearing calcifications are near the greater trochanter. IMPRESSION: Unremarkable left total knee prosthesis. No significant leg length discrepancy. DATA REPOSITORY: RADIATION DOSE DELIVERED:
== END 2022-10-03 08:23 | disposition home or self-care (01) ==
LOC: DIORS 08:22
PROVIDERS: PCP Nurse Practitioner Family; Referring Provider Nurse Practitioner Family; Visit Provider Student in an Organized Health Care Education/Training Program
DX: Z96.652 Presence of left artificial knee joint (principal); Z47.1 Aftercare following joint replacement surgery
CPT/HCPCS: 73560; 77073

== ENCOUNTER 2023-05-04 10:26 | Outpatient (REF) | payer MEDICAID, SELFPAY ==
[2023-05-04 16:10] LABS: Anion Gap 10.2 mmol/L (3-11); BUN 26 mg/dL (7-18); CO2 24.8 mmol/L (21.0-32.0); CREATININE 0.9 mg/dL (0.55-1.02); Calcium 9.3 mg/dL (8.5-10.1); Chloride 107 mmol/L (98-107); Estimated GFR 72.28 (mL/min/1.73m2); Glucose 98 mg/dL (74-106); Potassium 3.9 mmol/L (3.5-5.1); Sodium 142 mmol/L (136-145); Vitamin B12 341 pg/mL (193-986)
== END 2023-05-04 10:27 | disposition home or self-care (01) ==
LOC: NCHCN 10:26
PROVIDERS: PCP Nurse Practitioner Family; Visit Provider Family Medicine
DX: I10 Essential (primary) hypertension (principal); E53.8 Deficiency of other specified B group vitamins
CPT/HCPCS: 80048; 82607

== ENCOUNTER 2023-08-31 15:10 | Outpatient (CLI) | payer MEDICAID, SELFPAY ==
--- NOTE | 2023-08-31 14:30 | DI.RAD_ITS ---
Exam(s) XR HAND RT COMPLETE EXAM: XR HAND RT COMPLETE CLINICAL HISTORY: BILATERAL HAND PAIN. TECHNIQUE: 2D digital imaging was performed of the right hand. Three images were obtained. AP, late ral and oblique views were obtained. COMPARISON: CR XR HAND LT COMPLETE from 08/31/2023 FINDINGS: BONES: No acute fracture is present. No bony destructive lesion is seen. There is an old healed 3rd m etacarpal fracture. There also appears to be an old deformity of the 4th metacarpal bone. JOINTS: No dislocation present. There is joint space narrowing and osteophytes seen at the interphala ngeal joints of the fingers. The findings are mild. The metacarpophalangeal joints are well maintai marquez as are the carpal joints. SOFT TISSUE: No soft tissue calcifications are appreciated. IMPRESSION: Mild arthrosis of the right hand. DATA REPOSITORY: RADIATION DOSE DELIVERED:
--- NOTE | 2023-08-31 14:30 | DI.RAD_ITS ---
Exam(s) XR HAND LT COMPLETE EXAM: XR HAND LT COMPLETE CLINICAL HISTORY: BILATERAL HAND PAIN. TECHNIQUE: 2D digital imaging was performed of the left hand. Three views were obtained. AP, later al and oblique views were obtained. COMPARISON: No exams were available for comparison FINDINGS: BONES: No acute fracture is present. No bony destructive lesion is seen. JOINTS: No dislocation present. There is marked narrowing of the joint spaces and prominent osteophyt es seen in the hand particularly the DIP joints of the 3rd through 5th fingers. Central erosions are also noted. The metacarpophalangeal joints are well maintained as are the carpal joints. SOFT TISSUE: No soft tissue calcifications. There is mild soft tissue swelling at the DIP joint of t he 3rd finger and 5th finger. 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 DATA REPOSITORY: RADIATION DOSE DELIVERED:
== END 2023-08-31 15:11 | disposition home or self-care (01) ==
LOC: DIORS 15:11
PROVIDERS: PCP Nurse Practitioner Family; Visit Provider Student in an Organized Health Care Education/Training Program
DX: M19.041 Primary osteoarthritis, right hand (principal); M19.042 Primary osteoarthritis, left hand
CPT/HCPCS: 73130